=== PATIENT | female | born 1995 | race Caucasian/White ===

== ENCOUNTER 2024-04-01 02:13 | Emergency (ER) | payer SELFPAY ==
[~2024-04-01] VITALS: Ht 157.5 cm; Wt 45.5 kg
[2024-04-01 03:13] VITALS: BP 112/62; PULSE 80; RESP 16; TEMP 98.4; O2SAT 97
== END 2024-04-01 03:17 ==
LOC: ER 02:14
DX: Z02.89 Encounter for other administrative examinations (principal); V99.XXXA Unspecified transport accident, initial encounter; Y93.89 Activity, other specified; Y92.89 Other specified places as the place of occurrence of the external cause; Y99.8 Other external cause status
CPT/HCPCS: 99283; J7030